=== PATIENT | male | born 1960 | race African-American/Black ===

== ENCOUNTER 2018-12-02 15:56 | Emergency (ER) | payer OTHER ==
[2018-12-02] MEDS: IPRATROPIUM (NEB) 0.5 MG/2.5 ML AMP NEB (17:59)
[2018-12-02] MEDS: LEVALBUTEROL (NEB) 1.25 MG/0.5 ML AMP INH (17:59)
[2018-12-02 18:15] LABS: ADD MAN DIFF? NO
[2018-12-02 18:18] LABS: WHITE BLOOD COUNT 7.9 10^3/ul (4.8-10.8)
[2018-12-02 18:18] LABS: BASOPHILS % 0.4 % (0.0-2.0); EOSINOPHILS # 0.2 10^3/ul (0.0-0.5); HEMOGLOBIN 17.2 g/dl (14.0-18.0); LYMPHOCYTES # 1.6 10^3/ul (0.8-2.9); LYMPHOCYTES % 20.7 % (15.0-51.0); MEAN CORPUSCULAR HEMOGLOBIN 27.7 pg (29.0-33.0); MEAN CORPUSCULAR HGB CONC 33.1 g/dl (32.0-37.0); MEAN CORPUSCULAR VOLUME 83.6 fl (82.0-101.0); MEAN PLATELET VOLUME 10.9 fl (7.4-10.4); MONOCYTE # 0.5 10^3/ul (0.3-0.9); MONOCYTES % 6.7 % (0.0-11.0); NEUTROPHIL # 5.5 10^3/ul (1.6-7.5); NEUTROPHILS % 69.9 % (39.0-77.0); PLATELET COUNT 187 10^3/UL (140-415); RED BLOOD COUNT 6.22 10^6/ul (4.70-6.10); RED CELL DISTRIBUTION WIDTH 14.6 % (11.5-14.5)
[2018-12-02 18:35] LABS: ANION GAP 4 (5-13); BLOOD UREA NITROGEN 10 mg/dl (7-20); CALCIUM 8.7 mg/dl (8.4-10.2); CARBON DIOXIDE 25 mmol/L (21-31); CHLORIDE 108 mmol/L (97-110); CREATININE 0.84 mg/dl (0.61-1.24); Estimated GFR > 60 mL/min (>60); GLUCOSE 142 mg/dl (70-220); POTASSIUM 3.5 mmol/L (3.5-5.1); SODIUM 137 mmol/L (135-144)
[2018-12-02 18:38] LABS: PARTIAL THROMBOPLASTIN TIME 30.6 Sec (23.0-35.0); PROTIME 13.3 Sec (11.9-14.9)
[2018-12-02 18:49] LABS: B-TYPE NATRIURETIC PEPTIDE 4720 PG/ML (0-125); TROPONIN-I 0.018 ng/ml (0.000-0.120)
[2018-12-02] MEDS: FUROSEMIDE 40 MG INJ IV (19:16)
== END 2018-12-02 19:18 | disposition left against medical advice (07) ==
LOC: FTE 15:56
DX: I50.9 Heart failure, unspecified (principal); E11.9 Type 2 diabetes mellitus without complications; I25.10 Atherosclerotic heart disease of native coronary artery without angina pectoris; J44.9 Chronic obstructive pulmonary disease, unspecified; Z79.4 Long term (current) use of insulin
CPT/HCPCS: 36415; 71045; 80048; 83880; 84484; 85025; 85610; 85730; 93005; 94664; 99285-25